=== PATIENT | female | born 1930 | race Caucasian/White ===

== ENCOUNTER 2016-09-04 08:23 | Day surgery (SDC) | payer MEDICARE, OTHER ==
[~2016-09-04] VITALS: Ht 152.4 cm; Wt 64.4 kg
[2016-09-04] VITALS (9 sets, daily range): BP systolic 108–147; BP diastolic 55–71
[2016-09-04] MEDS ORDERED: BSS 500ml btl ONE (08:48)
[2016-09-04] MEDS ORDERED: Dexamethasone 4mg/ml vial ONE (08:49)
[2016-09-04] MEDS ORDERED: Maxitrol Opth Oint 3.5gm ONE (08:49)
[2016-09-04] MEDS ORDERED: Pred Forte 1% Opth Susp 1ml ONE (08:49)
[2016-09-04] MEDS ORDERED: Lidocaine 1% MPF 10mg/ml 5ml ONE (08:49)
[2016-09-04] MEDS ORDERED: Fluorescein Strips ONE (08:49)
[2016-09-04] MEDS ORDERED: Ciprofloxacin Opth Soln ONE (08:49)
[2016-09-04] MEDS ORDERED: Tetracaine 0.5% Opth Soln ONE (08:49)
[2016-09-04] MEDS ORDERED: Carbachol 0.01% Op Soln 1.5ml vial ONE (08:50)
[2016-09-04] MEDS ORDERED: Lidocaine 4% Amp ONE (08:50)
[2016-09-04] MEDS ORDERED: EPINEPHrine 1mg/1ml Amp ONE ×2 (08:50→09:05)
[2016-09-04] MEDS ORDERED: Povidone-Iodine 5% opth solution ONE (08:50)
[2016-09-04] MEDS ORDERED: Acetylcholine Injection (OR) ONE (08:51)
[2016-09-04] MEDS ORDERED: BSS 15ml BTL ONE (08:51)
[2016-09-04] MEDS ORDERED: Sodium Hyaluronate 10 mg/ml 0.85ml ONE (08:51)
[2016-09-04] MEDS ORDERED: ASPIR 8181 MG ORAL (09:08)
[2016-09-04] MEDS ORDERED: thyroid med (09:08)
--- NOTE | 2016-09-04 10:03 | Pre-Procedure Note/Attestation ---
Pre-Procedure Note/Attestation Complete Prior to Procedure Planned Procedure: right - Removal of cataract and placement of intraocular lens, right eye Procedure Narrative: Removal of cataract and placement of intraocular lens, right eye Indications for Procedure Pre-Operative Diagnosis: Cataract, nuclear, right eye Attestation I attest that I discussed the nature of the procedure; its benefits; risks and complications; and alternatives (and the risks and benefits of such alternatives ), prior to the procedure, with the patient (or the patient's legal administrative representative). I attest that, if there was a reasonable possibility of needing a blood transfusion, the patient (or the patient's legal administrative representative) was given the [place] [facility] [employer] [facility] standardized written summary, pursuant to the Walter Bunny Blood Safety Act ([place] Health and Safety Code # 1645, as amended). I attest that I re-evaluated the patient just prior to the surgery and that there has been no change in the patient's H&P, except as documented below: Rich Cramer MD Sep 04, 2016 10:03
[2016-09-04] MEDS ORDERED: Cyclopentolate 1% Opth Sol ONE (10:05)
[2016-09-04] MEDS ORDERED: Akten 3.5% 1ml Btl ONE (10:05)
[2016-09-04] MEDS ORDERED: Phenylephrine 10% Opth Soln 5ml ONE (10:06)
[2016-09-04] MEDS ORDERED: Flurbiprofen 0.03% Opth Sol 2.5ml ONE (10:06)
[2016-09-04] MEDS ORDERED: Vigamox Opth Soln ONE (10:06)
[2016-09-04] MEDS: Vigamox Opth Soln RIGHT EYE SCH ×3 (10:09→10:22)
[2016-09-04] MEDS: Flurbiprofen 0.03% Opth Sol 2.5ml RIGHT EYE SCH ×3 (10:09→10:22)
[2016-09-04] MEDS: Phenylephrine 10% Opth Soln 5ml RIGHT EYE SCH ×3 (10:09→10:22)
[2016-09-04] MEDS: Cyclopentolate 1% Opth Sol RIGHT EYE SCH ×3 (10:09→10:22)
[2016-09-04] MEDS: Akten 3.5% 1ml Btl RIGHT EYE SCH ×3 (10:10→10:22)
[2016-09-04] MEDS ORDERED: LR 1000ml ONE (11:30)
[2016-09-04] MEDS ORDERED: Midazolam 2mg/2ml Inj ONE (11:30)
[2016-09-04] MEDS ORDERED: NS Irrig 1000ml ONE (11:30)
[2016-09-04] MEDS ORDERED: Propofol 10mg/ml 20ml IV ONE (11:30)
[2016-09-04] MEDS ORDERED: fentaNYL 100 mcg/2 mL IV ONE (11:30)
[2016-09-04] MEDS ORDERED: Sterile Water Irrig 1000ml IRRIG ONE (11:30)
--- NOTE | 2016-09-04 11:50 | Anethesia Preoperative Eval ---
Anesthesia Pre-op PMH/ROS General Date of Evaluation: Sep 04, 2016 Time of Evaluation: 11:00 ASA Score: ASA 2 Mallampati Score Class I : Soft palate, uvula, fauces, pillars visible Class II: Soft palate, uvula, fauces visible Class III: Soft palate, base of uvula visible Class IV: Only hard plate visible Mallampati Classification: Class I Allergies: Coded Allergies: No Known Allergies (Unverified , 09/04/16) Past Medical History Cardiovascular: Reports: HTN Pulmonary: Reports: COPD Gastrointestinal/Genitourinary: Reports: GERD Anesthesia Pre-op Phys. Exam Physician Exam Last Vital Signs Date Time Temp Pulse Resp B/P Pulse Ox O2 Delivery O2 Flow Rate FiO2 09/04/16 09:08 97.7 69 20 147/71 97 Room Air Juan Daniel Aldana MD Sep 04, 2016 11:50
--- NOTE | 2016-09-04 12:17 | Discharge Instructions ---
Discharge Instructions Discharge Instructions Special Instructions Keep shield on at all times except to place eye drops Continue pre op eye drops Followup tomorrow in Dr Cramer's office For Congestive Heart Failure Reminder Report to your physician any weight gain of 5 pounds or more in one week. Rich Cramer MD Sep 04, 2016 12:17
--- NOTE | 2016-09-04 12:19 | Immediate Post-Op Evaluation ---
Immediate Post-Op Evalulation Immediate Post-Op Evalulation Procedure: right cataract Date of Evaluation: Sep 04, 2016 Time of Evaluation: 12:19 Nausea: No Vomiting: No Hydration Status: adequate Given Within 1 Hr of Incision: Yes Juan Daniel Aldana MD Sep 04, 2016 12:19
--- NOTE | 2016-09-04 12:19 | Brief Operative Note ---
Immediate Post Operative Note Operative Note Pre-op Diagnosis: Cataract, nuclear, right eye Procedure: Removal of cataract and placement of intraocular lens, right eye Post-op Diagnosis: same as pre-op Surgeon: Heladio Cramer MD MS Anesthesia: local, MAC Specimen: none Complications: none Condition: stable Estimated Blood Loss: minimal Implant(s) used?: Yes - baltazar zcb00 23.0 Rich Cramer MD Sep 04, 2016 12:19
--- NOTE | 2016-09-04 17:01 | Operative Note - Dictated ---
DATE OF OPERATION: 09/04/2016 SURGEON: Rich Cramer M.D. ROCKET ASSEMBLY OPERATOR: None. ANESTHESIOLOGIST: Juan Daniel Aldana M.D. ANESTHESIA: Local/standby/monitored anesthesia care. PREOPERATIVE DIAGNOSIS: Cataract, nuclear, right eye. POSTOPERATIVE DIAGNOSIS: Cataract, nuclear, right eye. PROCEDURES: 1. Phacoemulsification of cataract, right eye. 2. Placement of posterior chamber intraocular lens, right eye (model Lo [id number], power 23.0). SPECIMENS: None. COMPLICATIONS: None. INDICATIONS FOR SURGERY: The patient has had painless progressive decrease in visual acuity in the right eye secondary to cataract. The patient understands risks of surgery including infection, bleeding, need for further surgery, loss of vision, no improvement in vision, loss of the eye, loss of life, glaucoma, retinal detachment, and understands these risks and elects to proceed with surgery. FINDINGS: The patient had a +3 to 4 nuclear sclerotic cataract that was very dense centrally. Operative Note: After informed consent was obtained, the patient was brought into the operating room, placed in supine position. Cardiac and respiratory monitors were attached. A time-out was performed and all criteria were met and everyone in the room agreed. The right eye was draped and prepped in sterile manner for ocular surgery. A lid speculum was placed in the eye. A 1% lidocaine preservative-free was injected at the approximate 9:30 limbus. A conjunctival peritomy from approximately 9 o'clock to 10 o'clock was made and dissected posteriorly. Hemostasis was maintained with bipolar cautery. A 2.6 mm limbal incision was made centered approximately 9:30 and dissected anteriorly. Paracentesis was made at 12 o'clock, and Shugarcaine was injected into the anterior chamber followed by Healon. The anterior chamber was then entered using a 2.6 mm keratome through the limbal incision. An anterior capsulorrhexis was then performed. Hydrodissection and hydrodelineation of the lens was then performed. The lens was then phacoemulsified using divide and conquer four-quadrant technique. Residual cortical material was then aspirated. Healon was injected into the anterior chamber of capsular bag. The lens was taken from its package, placed into the cartridge, and the tip of the cartridge was placed through the limbal incision. The lens was injected into the capsular bag and centered nicely with a Sinskey hook. Healon was then aspirated from the anterior chamber of capsular bag. One 10-0 nylon interrupted suture was then placed through the limbal incision and the knot was rotated and buried. Care was taken during the entire procedure, not to touch the endothelium. The wounds were checked and found to be watertight. The conjunctiva was then closed with forceps cautery. The lid speculum and drapes were removed from the eye and drops of moxifloxacin Pred Forte and then Maxitrol ointment were applied to the eye followed by a shield. The patient tolerated the procedure well, left the operating room in awake, alert, and stable condition. Rich Cramer M.D. DR: RUDOLPH JOB#: [id number] CC: KATHY
--- NOTE | 2016-09-05 08:28 | 48 Hour Post Anesthesia Eval ---
Post Anesthesia Evaluation Procedure: right cataract Date of Evaluation: Sep 04, 2016 Time of Evaluation: 12:38 Nausea: No Vomiting: No Follow-up care needed: N/A Juan Daniel Aldana MD Sep 05, 2016 08:28
== END 2016-09-04 14:10 | disposition home or self-care (01) ==
LOC: SUR 08:23
DX: H25.11 Age-related nuclear cataract, right eye (principal); I10 Essential (primary) hypertension; E03.9 Hypothyroidism, unspecified; J44.9 Chronic obstructive pulmonary disease, unspecified; K21.9 Gastro-esophageal reflux disease without esophagitis
CPT/HCPCS: 66984; J0171; J1100; J2250; J2704; J3010; J7120; V2632; 94003; 94150

== ENCOUNTER 2018-12-08 10:30 | Emergency (ER) | payer MEDICARE, OTHER ==
[~2018-12-08] VITALS: Ht 149.9 cm; Wt 49.9 kg
[~2018-12-08 10:30] MED LIST: ASPIR 8181 MG ORAL; thyroid med
[2018-12-08 10:40] VITALS: BP 128/76
--- NOTE | 2018-12-08 10:40 | NUR ---
ED Nurse Note: pt walked in to ED due to left 4th and 3rd digit finger injury on Fri. per pt, jammed while closing balcony door. bruised, dried blood and redness noted. cap refill <3sec. unable to make fist due to pain. per pt, it was ok but since yesterday pain gets wrose and redness noted. AAO x4. swazi speaker. respirations even and non-labored noted. will wait for the further order.
--- NOTE | 2018-12-08 10:50 | Emergency Room Report ---
History of Present Illness General Chief Complaint: Upper Extremity Injury Source: Patient, Medical Record Present Illness HPI Disclaimer: Please note that this report is being documented using DRAGON technology. This can lead to erroneous entry secondary to incorrect interpretation by the dictating instrument. HPI: 88-year-old [id number] female presents for evaluation of hand injury. Patient accidentally closed a sliding balcony door onto the third and fourth digits of her left hand 3 days ago. Noted pain and swelling but has been applying salt bath and bacitracin ointment. Yesterday she noted worsening pain over the distal phalanx and spreading redness. Notes pain with flexion but is able to do so. Denies pain or injury to the mid hand, anatomic snuffbox , wrist or any other body part. PMH: Reviewed chart PSH: Reviewed the chart Allergies: None Social Hx: None Allergies: Coded Allergies: No Known Allergies (Unverified , 09/04/16) Nursing Documentation-PMH Past Medical History: No History, Except For Hx Cardiac Problems: Yes Hx Cancer: No Hx Gastrointestinal Problems: No Hx Neurological Problems: No Review of Systems All Other Systems: negative except mentioned in HPI Physical Exam Vital Signs Date Time Temp Pulse Resp B/P (MAP) Pulse Ox O2 Delivery O2 Flow Rate FiO2 12/08/18 10:38 97.2 61 18 128/76 (93) 95 Room Air General: Awake and alert, no acute distress HEENT: NC/AT. EOMI. Resp: Normal work of breathing Skin: Intact. No abrasions, laceration or rash over the exposed skin MSK: Normal tone and bulk. Moving all extremities. There are abrasions over the dorsal aspect of the distal phalanx on the third and fourth digits on the left hand. Tenderness palpation with surrounding erythema. Scabbing is intact. No apparent nailbed injury. No subungual hematomas. Nails are attached at the eponychial fold. No discharge/purulence. No tenderness over the anatomic snuffbox or wrist. Full range of motion at the wrist and other digits. No fusiform swelling, no pain with extension, no tenderness over the flexor surface. Neuro: Awake and alert. Mentating appropriately and sensation intact over the radial ulnar aspect of the digits on the left hand to light touch. Medical Decision Making Diagnostic Impression: Primary Impression: Cellulitis, finger ER Course 88-year-old female presents for evaluation of worsening pain and swelling after hand injury 3 days ago. Will obtain an x-ray for fracture and update tetanus. She may have a cellulitis and will start oral antibiotics. Will clean the wound in the emergency department and apply dressing. Other X-Ray Diagnostic Results Other X-Ray Diagnostic Results : X-Ray ordered: Hand # of Views/Limited Vs Complete: Complete Indication: Pain EP Interpretation: Yes Interpretation: no dislocation, no soft tissue swelling, no fractures Impression: No acute disease Electronically Signed by: Electronically signed by Dr. Sam Garrido Reevaluation Time: 11:12 Last Vital Signs Date Time Temp Pulse Resp B/P (MAP) Pulse Ox O2 Delivery O2 Flow Rate FiO2 12/08/18 10:38 97.2 61 18 128/76 (93) 95 Room Air Reevaluation Impression No evidence of tuft fracture or dislocation. There is no clinical suspicion for flexor tenosynovitis or any other emergent hand pathology aside from a superficial cellulitis. Will start on Keflex and prescribed Motrin for pain. Patient is instructed to follow-up with her PMD later this week and to return to the emergency department any new or worsening symptoms. She understands and agrees with this treatment plan will be discharged home. Disposition: HOME, SELF-CARE Condition: Stable Scripts Cephalexin* (KEFLEX*) 500 Mg Capsule 500 MG ORAL EVERY 12 HOURS, #14 CAP 0 Refills Prov: Sam Garrido MD 12/08/18 Ibuprofen* (MOTRIN*) 600 Mg Tablet 600 MG ORAL Q8H PRN for For Pain, #30 TAB 0 Refills Prov: Sam Garrido MD 12/08/18 Sam Garrido MD Dec 08, 2018 10:50
[2018-12-08] MEDS ORDERED: Tetanus/Diptheria/Pertussis IM ONE (11:00)
[2018-12-08] MEDS ORDERED: IBUPROFEN600 MG ORAL (11:11)
[2018-12-08] MEDS ORDERED: CEPHALEXIN500 MG ORAL (11:11)
[2018-12-08 11:20] VITALS: BP 122/71
--- NOTE | 2018-12-08 11:22 | NUR ---
ER DISCHARGE NOTE: Patient is cleared to be discharged per ERMD, pt is aox4, on room air, with stable vital signs. pt was given dc and prescription instructions, pt was able to verbalize understanding, pt id band removed without complications. pt is able to ambulate with steady gait. pt took all belongings.
--- NOTE | 2018-12-08 11:24 | Diagnostic Imaging Report ---
Indication: Left hand pain Technique: 3 views left hand Comparison: none Findings: No acute fractures. No dislocations. 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 There are also less severe degenerative changes of the second third and fourth distal interphalangeal joints and of the second through fifth proximal interphalangeal joints. There are also degenerative changes of the first carpometacarpal joint, resulting in subchondral fibrosis and degenerative remodeling. The bones are osteoporotic Impression: No acute bony trauma Degenerative changes as described
== END 2018-12-08 11:22 | disposition home or self-care (01) ==
LOC: EMR 11:20
DX: L03.012 Cellulitis of left finger (principal); Z23 Encounter for immunization
CPT/HCPCS: 90471; 90715; 99283

== ENCOUNTER 2019-07-04 09:20 | Emergency (ER) | payer MEDICARE, OTHER ==
[~2019-07-04] VITALS: Ht 152.4 cm; Wt 61.2 kg
[~2019-07-04 09:20] MED LIST changes: +CEPHALEXIN500 MG ORAL; +IBUPROFEN600 MG ORAL
--- NOTE | 2019-07-04 09:40 | NUR ---
ED Nurse Note: Pt walked in to ED for C/O swelling and pain to left ankle. PT reports twisting her ankle 4 days ago. denies fall.
--- NOTE | 2019-07-04 09:49 | Emergency Room Report ---
History of Present Illness General Chief Complaint: Lower Extremity Injury Source: Patient Present Illness HPI Disclaimer: Please note that this report is being documented using DRAGON technology. This can lead to erroneous entry secondary to incorrect interpretation by the dictating instrument. HPI: 89-year-old female presents for evaluation of left ankle and foot pain. 4 days ago she had a misstep and rolled her ankle to the outside. Noted pain and swelling over the lateral aspect of the left ankle and foot. Most of her pain now is in the distal lateral foot. Still able to ambulate. Able to flex and extend. Notes swelling and applied ice after the injury but not since. Not taking any medications currently. Denies fall, head injury or other injury sustained. No other complaints at this time. Allergies: Coded Allergies: No Known Allergies (Unverified , 09/04/16) COVID-19 Screening Contact w/high risk pt: No Recent Travel to affected area: No Experienced COVID-19 symptoms?: No COVID-19 Testing performed MANAGER OF BUSINESS OPERATIONS: No Nursing Documentation-PMH Hx Cardiac Problems: Yes Hx Cancer: No Hx Gastrointestinal Problems: No Hx Neurological Problems: No Review of Systems All Other Systems: negative except mentioned in HPI Physical Exam Vital Signs Date Time Temp Pulse Resp B/P (MAP) Pulse Ox O2 Delivery O2 Flow Rate FiO2 07/04/19 09:35 97.7 64 16 121/76 (91) 99 Room Air General: Awake and alert, no acute distress HEENT: NC/AT. EOMI. Resp: Normal work of breathing Skin: Intact. No abrasions, laceration or rash over the exposed skin MSK: Normal tone and bulk. Moving all extremities. Able to dorsiflex and plantarflex at the left ankle. Moderate swelling around the lateral malleolus with tenderness palpation over the anterior portion as well as over the midfoot region and at the base of the fourth and fifth toes on the left foot. No tenderness over the medial malleolus. Patient is ambulatory. Neuro: Awake and alert. Mentating appropriately Medical Decision Making Diagnostic Impression: Primary Impression: Fracture of distal fibula Additional Impressions: Rowley fracture Fracture of fifth metatarsal bone ER Course 89-year-old female presents for evaluation of ankle pain and swelling after a twisting injury 4 days ago. Concern for fracture x-rays were obtained and show an acute fracture of the proximal portion of the fifth metatarsal consistent with a Rowley fracture. Radiology also concerned about possible oblique fracture in the distal fibula. The patient has no tenderness there. She was placed in a posterior slab and sugar tong splint. X-rays were included in her discharge paperwork. I updated family ([id number]) at bedside. She was given a cane for ambulation. Restricted nonweightbearing. Follow-up with PMD will refer to orthopedic surgery. Discussed reasons to return to the emergency department. She understands and agrees with this treatment plan. Other X-Ray Diagnostic Results Other X-Ray Diagnostic Results #1: X-Ray ordered: Left ankle # of Views/Limited Vs Complete: Complete Indication: Pain Interpretation: other Impression: Other Electronically Signed by: Electronically signed by Dr. Sam Garrido Other X-Ray Diagnostic Results #2: X-Ray ordered: Foot, left # of Views/Limited Vs Complete: Complete Indication: Pain EP Interpretation: Yes Interpretation: other - Acute fracture of the proximal portion of the fifth metatarsal Impression: Other - Acute Rowley fracture Electronically Signed by: Electronically signed by Dr. Sam Garrido Last Vital Signs Date Time Temp Pulse Resp B/P (MAP) Pulse Ox O2 Delivery O2 Flow Rate FiO2 07/04/19 09:35 97.7 64 16 121/76 (91) 99 Room Air Disposition: HOME, SELF-CARE Condition: Stable Scripts Ibuprofen* (MOTRIN*) 600 Mg Tablet 600 MG ORAL Q6H PRN for For Pain, #30 TAB 0 Refills Prov: Sam Garrido MD 07/04/19 Referrals: NON PHYSICIAN (PCP) Sam Garrido MD July 04, 2019 09:49
[2019-07-04] MEDS ORDERED: IBUPROFEN600 M1 ORAL (09:50)
[2019-07-04] MEDS ORDERED: Solu-MEDROL 125mg Inj IVP ONE (10:00)
--- NOTE | 2019-07-04 10:10 | NUR ---
ED Nurse Note: x ray being taken at bedside.
--- NOTE | 2019-07-04 10:47 | NUR ---
ED Nurse Note: short leg posterior splint being applied by overedge machine operator at bedside.
--- NOTE | 2019-07-04 10:57 | Diagnostic Imaging Report ---
EXAM: XR Left Ankle Complete, 3 or More Views CLINICAL HISTORY: INJ TECHNIQUE: Frontal, lateral and oblique views of the left ankle. COMPARISON: Left foot x-rays obtained the same date. FINDINGS: Bones/joints: Possible nondisplaced oblique fracture lucency within the distal fibula (Lira type B pattern) seen only on the frontal view. Nondisplaced transverse fracture lucency in the proximal fifth metatarsal, suggestive of a Rowley fracture. Otherwise no other evidence of acute displaced fracture or dislocation in the ankle. Ankle mortise and talar dome appear intact. Small plantar calcaneal bony spur. Soft tissues: Bimalleolar soft tissue swelling. IMPRESSION: 1. Possible nondisplaced oblique fracture lucency within the distal fibula (Lira type B pattern) seen only on the frontal view. 2. Bimalleolar soft tissue swelling. 3. Nondisplaced transverse fracture lucency in the proximal fifth metatarsal, suggestive of a Rowley fracture.
--- NOTE | 2019-07-04 10:58 | Diagnostic Imaging Report ---
EXAM: XR Left Foot Complete, 3 or More Views CLINICAL HISTORY: INJ TECHNIQUE: Frontal, lateral and oblique views of the left foot. COMPARISON: Left ankle x-rays obtained the same date FINDINGS: Bones/joints: Nondisplaced transverse fracture lucency in the proximal fifth metatarsal approximately 2 cm from the tip, consistent with a Rowley fracture. No other fracture or dislocation seen in the foot. Small plantar calcaneal bony spur. Soft tissues: Bimalleolar soft tissue swelling. No radiopaque foreign body. Vasculature: Incidental note of atherosclerotic calcifications. IMPRESSION: Nondisplaced transverse fracture lucency in the proximal fifth metatarsal approximately 2 cm from the tip, consistent with a Rowley fracture.
[2019-07-04 12:01] VITALS: BP 130/73
== END 2019-07-04 12:01 | disposition home or self-care (01) ==
LOC: EMR 09:46
DX: S92.355A Nondisplaced fracture of fifth metatarsal bone, left foot, initial encounter for closed fracture (principal); X58.XXXA Exposure to other specified factors, initial encounter; Y92.9 Unspecified place or not applicable
CPT/HCPCS: 29515; 96374; 99284